=== PATIENT | male | born 1970 | race Caucasian/White ===

== ENCOUNTER → 2021-11-02 | Day surgery (SDC) | payer OTHER ==
[~2021-11-02] VITALS: Ht 175.3 cm; Wt 93.0 kg
[~2021-11-02] MED LIST: ATORVASTATIN CA20 MG PO; VITAMIN D21250 MCG PO
[2021-11-02 08:51] LABS: BASOPHIL 0.4 % (0-2); EOSINOPHIL 1.5 % (0-5); HCT 47.3 % (42.0-52.0); LYMPHOCYTE 26.1 % (15-48); MCH 32.9 pg (25.0-31.0); MCHC 33.8 g/dL (32.0-36.0); MCV 97.3 fL (78.0-100.0); MONOCYTE 7.6 % (0-12); MPV 8.9 fL (6.0-9.5); NEUTROPHIL 63.8 % (41-80); NRBC 0; PLT 274 K/uL (150-400); RBC 4.86 M/uL (4.70-6.00); RDW 11.9 % (11.5-14.0); WBC 10.1 K/uL (4.0-10.5)
[2021-11-02 09:18] LABS: ALBUMIN 4.2 g/dL (3.4-5.0); BILIRUBIN - TOTAL 0.5 mg/dL (0.2-1.0); BUN/CREAT RATIO (CALC) 12.7 RATIO; CREATININE 0.79 mg/dL (0.67-1.17); GLOBULIN (CALCULATION) 2.7 g/dL; TOTAL PROTEIN 6.9 g/dL (6.4-8.2)
== END | disposition home or self-care (01) ==
LOC: FAS 08:19
PROVIDERS: Otolaryngology
DX: Z12.11 Encounter for screening for malignant neoplasm of colon (principal); F17.210 Nicotine dependence, cigarettes, uncomplicated
CPT/HCPCS: 36415; 80053; 85025; J2704; J7120